=== PATIENT | male | born 1975 | race Caucasian/White ===

== ENCOUNTER → 2017-11-26 16:30 | Outpatient (CLI) | payer MEDICARE, SELFPAY | PROVIDERS: Visit Provider Family Medicine | DX: E72.20 Disorder of urea cycle metabolism, unspecified (principal) | CPT/HCPCS: 82140 ==

== ENCOUNTER 2018-03-07 16:02 | Emergency (ER) | payer MEDICARE, SELFPAY ==
[2018-03-07 16:03] VITALS: BP 127/70; PULSE 56; RESP 18; TEMP 37; O2SAT 96; BMI 27.1
--- NOTE | 2018-03-07 16:35 | CT_ITS ---
STUDY: CT BRAIN WITHOUT CONTRAST REASON FOR EXAM: Male, 42 years old. Trauma RADIATION DOSAGE (If Supplied By Facility): CTDIvol = ( 44.99 ) mGy, DLP = ( 846.73 ) mGycm TECHNIQUE: Transaxial CT imaging of the brain was performed without administration of intravenous contrast material. Individualized dose optimization techniques were used for this CT. COMPARISON: 04/30/2014 FINDINGS: There are stable old bilateral frontal infarcts, right greater than left. There is no acute bleed or infarct. There are stable chronic ischemic and atrophic changes. The ventricles are normal in configuration. There is no hydrocephalus. There is mild mucosal hypertrophy in the left maxillary sinus and bilateral ethmoid sinuses. The mastoid air cells are well aerated. There is no skull fracture. There is mild soft tissue swelling of the forehead. CT/Brain/Head without Contrast IMPRESSION: Stable bilateral frontal infarcts, right greater than left. Stable chronic ischemic and atrophic changes. No acute intracranial abnormality. Mild soft tissue swelling of the forehead. Mild sinusitis. Electronically Signed: Chong Becerra, at 17:20 EST Tel , Service support ,
--- NOTE | 2018-03-07 16:35 | CT_ITS ---
STUDY: CT FACIAL BONES WITHOUT CONTRAST REASON FOR EXAM: Male, 42 years old. Trauma RADIATION DOSAGE (If Supplied By Facility): CTDIvol = ( 29.38 ) mGy, DLP = ( 1138.98 ) mGycm TECHNIQUE: The patient was scanned in a multi detector CT scanner. Sagittal and coronal images were reconstructed. Individualized dose optimization techniques were used for this CT. COMPARISON: None. FINDINGS: There is mild soft tissue swelling overlying the C4 head and right cheek. Normal orbital jackson and orbital contents. Normal nasal bones and anterior nasal spine. Normal facial bones. There is no demonstrated fracture. There is mucosal hypertrophy in the bilateral maxillary and ethmoid sinuses. CT/Sinus/Facial Bone IMPRESSION: No facial fracture. Mild soft tissue swelling of the forehead and right cheek. Sinusitis. Electronically Signed: Chong Becerra, at 17:41 EST Tel , Service support ,
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
== END 2018-03-07 19:09 | disposition home or self-care (01) ==
PROVIDERS: Emergency Provider Emergency Medicine; Family Provider Family Medicine; PCP Family Medicine
DX: S00.83XA Contusion of other part of head, initial encounter (principal); Y09 Assault by unspecified means; Y93.89 Activity, other specified; Y92.129 Unspecified place in nursing home as the place of occurrence of the external cause; I10 Essential (primary) hypertension; F03.90 Unspecified dementia, unspecified severity, without behavioral disturbance, psychotic disturbance, mood disturbance, and anxiety; F43.10 Post-traumatic stress disorder, unspecified; F25.9 Schizoaffective disorder, unspecified; Z87.820 Personal history of traumatic brain injury; Z79.82 Long term (current) use of aspirin; Z79.899 Other long term (current) drug therapy
CPT/HCPCS: 70450; 70486; 99284

== ENCOUNTER → 2019-12-17 14:56 | Outpatient (CLI) | payer MEDICARE, MEDICAID, SELFPAY ==
--- NOTE | 2019-12-17 14:58 | CT_ITS ---
HISTORY: RIGHT TESTICULAR MASS ADDITIONAL HISTORY: None provided. EXAMINATION/TECHNIQUE: CT Abdomen And Pelvis W/ Contrast Injection CONTRAST: IV 100mL Isovue-300 IV contrast. Enteric contrast was given. A radiation dose optimization technique was used for this scan. Number of images including paperwork: 413 COMPARISON: 04/10/2014 FINDINGS: LOWER THORAX: No consolidation or pleural effusion. LIVER: No concerning focal lesion. Subcentimeter well-defined hypodense hepatic lesions compatible with cysts for which no follow-up is warranted. GALLBLADDER: No radiopaque calculi. BILE DUCTS: No significant biliary dilatation. SPLEEN: Unremarkable. PANCREAS: Unremarkable. ADRENAL GLANDS: Unremarkable. KIDNEYS/URETERS: Unremarkable. BOWEL: No bowel obstruction. No significant bowel wall thickening. No localized inflammation. Large amount of stool in the colon with distended stool filled rectosigmoid colon. APPENDIX: No evidence of appendicitis. FREE FLUID: No significant free fluid. FREE AIR: None. LYMPH NODES: No pathologic appearing adenopathy. PERITONEUM, RETROPERITONEUM AND MESENTERY: Otherwise unremarkable. VASCULATURE: Unremarkable as imaged. PELVIS: Unremarkable bladder. ABDOMINAL WALL: Unremarkable. OSSEOUS AND SOFT TISSUE STRUCTURES: No acute skeletal findings. Bilateral L5 spondylolysis with grade 1 anterolisthesis, unchanged. Mild degenerative changes. CT/Abdomen/Pelvis WITH Contrast IMPRESSION: No evidence of abdominal pelvic metastatic disease. Large amount of colonic stool. Individualized dose optimization techniques were used for this CT. at 0741 Reported and signed by: Roopa Sanchez MD Electronically Signed: Roopa Sanchez MD at 7:41 EDT Tel , Service support ,
--- NOTE | 2019-12-17 15:04 | CT_ITS ---
HISTORY: RIGHT TESTICULAR MASS TECHNIQUE: CT images of the chest were obtained with 100mL Isovue-300 IV contrast. Number of images including paperwork: 1142. A radiation dose optimization technique was used for this scan. COMPARISON: None FINDINGS: Evaluation mildly limited by motion artifact. VASCULATURE: Unremarkable as imaged. HEART/PERICARDIUM: Unremarkable. MEDIASTINUM: Unremarkable. ADENOPATHY: No pathologic appearing adenopathy. THYROID: Unremarkable visualized portions. LUNG PARENCHYMA: No consolidation or mass. Hypoventilatory changes. PLEURAL SPACES: Trace bilateral pleural fluid. UPPER ABDOMEN: Refer to CT abdomen report OSSEOUS AND SOFT TISSUE STRUCTURES: No acute skeletal findings. DEVICES: None. CT/Chest WITH Contrast IMPRESSION: No evidence of metastatic disease in the chest. Individualized dose optimization techniques were used for this CT. at 0723 Reported and signed by: Roopa Sanchez MD Electronically Signed: Roopa Sanchez MD at 7:23 EDT Tel , Service support ,
== END ==
PROVIDERS: PCP Family Medicine
DX: N50.89 Other specified disorders of the male genital organs (principal)
CPT/HCPCS: 71260; 74177; Q9967

== ENCOUNTER → 2020-06-07 12:55 | Outpatient (CLI) | payer MEDICARE, MEDICAID, SELFPAY ==
--- NOTE | 2020-06-07 12:57 | CT_ITS ---
STUDY: CT ABDOMEN AND PELVIS WITH CONTRAST REASON FOR EXAM: Male, 45 years old. PSEUDOSARCOMATOUS MYOFIBROMATOSIS RADIATION DOSAGE (If Supplied By Facility): CTDIvol = ( 17.96 ) mGy, DLP = ( 1440.04 ) mGycm TECHNIQUE: Transaxial images were obtained from the dome of the diaphragm to the symphysis pubis without oral contrast. Oral and amp; IV Readi-CAT and amp; 100mL Isovue-300 was administered. Sagittal and coronal images were reconstructed. Individualized dose optimization techniques were used for this CT. COMPARISON: 12/17/2019. FINDINGS: The visualized lung bases are unremarkable. The visualized portions of the heart are within normal limits. Small right liver cyst, otherwise unremarkable liver. Normal gallbladder and extrahepatic biliary system. Normal spleen. Normal pancreas. There is a small, circumscribed, smooth, low attenuation right adrenal mass, consistent with an adrenal adenoma. Normal left adrenal gland. There is moderate cortical atrophy of the right kidney, consistent with chronic medical renal disease. There is moderate cortical atrophy of the left kidney, consistent with chronic medical renal disease. Normal visualized stomach. Normal small intestine. Normal colon. The appendix is visualized and appears normal. Massive rectal stool burden extending to the mid abdomen. Normal abdominal aorta. Normal inferior vena cava. Normal retroperitoneum. Normal urinary bladder. Normal visualized prostate gland. Normal abdominal wall. Normal osseous structures. CT/Abdomen/Pelvis WITH Contrast IMPRESSION: No evidence for malignant or metastatic disease. Massive rectal stool burden extending into the mid abdomen and throughout the colon. Electronically Signed: Olivier Campos MD at 18:51 EDT Tel , Service support ,
== END ==
PROVIDERS: PCP Family Medicine; Referring Provider Family Medicine; Visit Provider Family Medicine
DX: M72.4 Pseudosarcomatous fibromatosis (principal); M72.9 Fibroblastic disorder, unspecified
CPT/HCPCS: 74177; Q9967

== ENCOUNTER → 2021-05-24 | Outpatient (REF) | payer SELFPAY | END | disposition home or self-care (01) | LOC: OLS.AHA 04:32 | PROVIDERS: PCP Family Medicine; Visit Provider Family Medicine | DX: Z79.899 Other long term (current) drug therapy (principal); Z51.81 Encounter for therapeutic drug level monitoring | CPT/HCPCS: 82140 ==

== ENCOUNTER → 2021-07-21 | Outpatient (CLI) | payer MEDICARE, MEDICAID, SELFPAY ==
--- NOTE | 2021-07-21 08:26 | CT_ITS ---
STUDY: CT ABDOMEN AND PELVIS WITH CONTRAST REASON FOR EXAM: Male, 46 years old. MALIGNANT NEOPLASM OF R TESTIS. Follow-up examination. RADIATION DOSAGE (If Supplied By Facility): CTDIvol = ( 16.13 ) mGy, DLP = ( 1190.04 ) mGycm TECHNIQUE: Transaxial images were obtained from the dome of the diaphragm to the symphysis pubis with oral contrast. Oral and amp; IV Readi-CAT and amp; 100mL Isovue-300 was administered. Sagittal and coronal images were reconstructed. Individualized dose optimization techniques were used for this CT. COMPARISON: Comparison is made with prior examination 06/07/2020. FINDINGS: The visualized lung bases are unremarkable. The visualized portions of the heart are within normal limits. Small, subcentimeter liver cysts. Mild degree of diffuse fatty infiltration of the liver. Normal gallbladder and extrahepatic biliary system. Normal spleen. Normal pancreas. There is a small, circumscribed, smooth, low attenuation right adrenal mass, consistent with an adrenal adenoma. This is unchanged. Normal left adrenal gland. Normal right kidney. Normal left kidney. Normal visualized stomach. Normal small intestine. Large amount of fecal material is seen in the rectosigmoid colon. The appendix is visualized and appears normal. Normal abdominal aorta. Normal inferior vena cava. Normal retroperitoneum. Normal urinary bladder. Normal abdominal wall. Normal osseous structures. CT/Abdomen/Pelvis WITH Contrast IMPRESSION: Large amount of fecal material is seen in the rectosigmoid colon. There has been essentially no change since prior study. Electronically Signed: Jassi Hare MD at 10:10 EDT ,
== END | disposition home or self-care (01) ==
LOC: CT 08:24
PROVIDERS: PCP Family Medicine; Referring Provider Family Medicine; Visit Provider Family Medicine
DX: C62.11 Malignant neoplasm of descended right testis (principal)
CPT/HCPCS: 74177; Q9967

== ENCOUNTER → 2021-08-16 | Outpatient (REF) | payer SELFPAY | END | disposition home or self-care (01) | LOC: OLS.AHA 05:58 | PROVIDERS: PCP Family Medicine; Visit Provider Family Medicine | DX: R79.89 Other specified abnormal findings of blood chemistry (principal); D69.6 Thrombocytopenia, unspecified; E55.9 Vitamin D deficiency, unspecified | CPT/HCPCS: 82140 ==

== ENCOUNTER → 2021-09-08 | Outpatient (REF) | payer SELFPAY | END | disposition home or self-care (01) | LOC: OLS.AHA 03:37 | PROVIDERS: PCP Family Medicine; Visit Provider Family Medicine | DX: E72.20 Disorder of urea cycle metabolism, unspecified (principal); Z79.899 Other long term (current) drug therapy | CPT/HCPCS: 82140 ==

== ENCOUNTER → 2024-12-01 | Outpatient (CLI) | payer MEDICAID, SELFPAY ==
[2024-12-01 17:21] LABS: Ammonia 17.4 umol/L (16-60)
== END | disposition home or self-care (01) ==
PROVIDERS: PCP Family Medicine; Referring Provider Family Medicine; Visit Provider Family Medicine
DX: E72.20 Disorder of urea cycle metabolism, unspecified (principal)
CPT/HCPCS: 82140

== ENCOUNTER → 2025-02-26 | Outpatient (CLI) | payer MEDICARE, MEDICAID, SELFPAY ==
[2025-02-26 13:40] LABS: Hematocrit 40.1 % (40-54); Hemoglobin 13.6 g/dL (13.0-16.5); Immature Granulocytes Count 0.010 X10^3/uL (0.0-0.0); Mean Corp Hgb Conc 33.9 g/dL (32-36); Mean Corpuscular Volume 91.8 fL (80-94); Mean Platelet Vol. 10.6 fl (6.2-12.0); NRBC Flagged by Analyzer 0 % (0-5); Platelet Count 198 K/mm3 (150-450); RBC Distribution Width CV 13.1 % (11.6-14.6); RBC Distribution Width SD 43.6 fl (35.1-43.9); Red Blood Count 4.37 M/mm3 (4.6-6.2); White Blood Count 5.7 K/mm3 (4.4-11.0)
== END | disposition home or self-care (01) ==
PROVIDERS: PCP Family Medicine; Referring Provider Family Medicine; Visit Provider Family Medicine
DX: G40.A19 Absence epileptic syndrome, intractable, without status epilepticus (principal)
CPT/HCPCS: 85025